=== PATIENT | female | born 1970 | race Caucasian/White ===

== ENCOUNTER 2023-10-14 00:55 | Emergency (ER) | payer BC, SELFPAY ==
[2023-10-14 00:56] VITALS: BMI 29.6
[2023-10-14 01:04] VITALS: BP 141/86
--- NOTE | 2023-10-14 01:21 | ED.GENMED ---
History of Present Illness
General
Chief Complaint: Medication Reaction
Source: patient
Time Seen by Provider: 10/14/23 01:13
Travel History
Have you had any contact with someone who has COVID-19?: No
Do you have any symptoms of coronavirus? Fever > 100 degrees, chills, cough, shortness of breath, sore throat, loss of taste or smell, muscle aches, or headache?: No
History of Present Illness
History of Present Illness:
This patient is a 53-year-old female who states she was feeling her usual self all day today. She typically takes to delta 8 Gummies as a way to feel relaxed and able to go to sleep. Tonight she took the same usual dose of delta 8 Gummies, and
shortly after, about 2 hours ago, started to feel extremely anxious associated with generalized dizziness, shaking and heart racing. She denies cp/sob/abd pain/n/v/back pain/n/t/focal weakness or other comlnts.
Past History
Past History
ED Past Medical History: Psychiatric
ED Past Surgical History: Orthopedic
Social History
Tobacco: Non-smoker
Alcohol: None
Drug: None
Personal:
Phy Exam
Physical Exam
Physical Exam:
GENERAL: Alert , in no apparent distress
EYE: pupils equal and reactive (L sl sluggish, pt has hx of congenital vision loss)
NECK: Supple, no significant adenopathy.
ENT: o/p clr, mmm.
CARDIAC: Regular rate and rhythm .
LUNGS: Clear breath sounds bilaterally, no acute respiratory distress, no wheezes/rales/rhonchi
ABDOMEN: Soft, without focal tenderness, no r/g, no cvat
NEUROLOGICAL: Alert and oriented, no focal neuro deficits
SKIN: Warm and dry, skin intact.
MUSCULOSKELETAL: No edema, well perfused.
PSYCH: extremely anxious
Course
Orders/Labs/Results
Orders:
Orders
10/14/23 01:20
Lorazepam [Ativan] 1 mg IV NOW STA
10/14/23 01:25
0.9% Sodium Chloride 1000 ml [Nss] 1,000 ml IV BOLUS
10/14/23 01:27
CBC/With Diff [Complete Blood Count/With Diff] Urgent
CMP [Comprehensive Metabolic Panel] Urgent
Abnormal Lab Results
10/14/23
01:27
Glucose 222 H mg/dl
(70-99)
AST 41 H U/L
(14-36)
10/14/23 01:27
10/14/23 01:27
Vital Signs
Initial and Last Documented VS:
Initial Vital Signs
Pulse Resp Pulse Ox
116 20 100
10/14/23 00:56 10/14/23 00:56 10/14/23 00:56
Last Documented Vital Signs
Pulse Resp BP Pulse Ox
86 14 92/59 92
10/14/23 04:45 10/14/23 04:45 10/14/23 04:00 10/14/23 04:45
*Critical Care Note
Total Time (30-74mins, 75-104mins- exclusive of procedures): Not Applicable
Update Note
Update Note:
Patient presents to the Emergency Department with anxiety, heart racing, dizzy
Number and Complexity of Problems Addressed at the Encounter
� Chronic conditions affecting care:
� Acute Exacerbation and/or Progression of Chronic Illness:
� Differential Diagnosis includes:But not limited to anxiety, electrolyte disorder, medication reaction, etc.
Amount and/or Complexity of Data to be Reviewed and Analyzed
� I performed an independent evaluation of and my interpretation is:
EKG:
CT:
Xrays:
Laboratory Studies: Generally unremarkable
Other:
� Review of other/old records reveals:
� Clinical information was obtained by an independent historian:
� Prescriptions/Medications Considered but not given:
� Further testing considered but not performed:
Risk of Complications and/or Morbidity or Mortality of Patient Management
� Social determinants of health affecting care:
� Discussion with other providers (PCP, Hospitalists, Consultants, etc):
� Escalation of care including admission/observation vs risk of discharge considered: now at bedside, history obtained from him as well. 4:36 AM patient resting comfortably, asymptomatic, feels much better. Suspect
either medication reaction or anxiety. Discussed with her and her importance of follow-up and reasons return to the ER, avoidance of delta 8, etc. Patient is very comfortable with discharge.
ED Attending Note
-
Portions of this chart may have been created with voice recognition software.� Occasional wrong word or��sound alike� substitutions may have occurred due to the inherent limitations of voice recognition software.
Discharge Plan
Departure
Patient Disposition: Home (Routine Discharge)
Date of Disposition: 10/14/23
Time of Disposition: 04:34
Patient with high blood pressure during this ER visit?: Yes
Condition: Good
Discharge Problem:
Dizziness
Instructions: Dizziness, BLOOD PRESSURE
Referrals:
Steven Mera MD [Family Provider] - Tomorrow
Activity Restrictions/Additional Instructions:
IF YOU DEVELOP CHEST PAIN, TROUBLE BREATHING, FEVER, CHILLS, VOMITING, ABDOMINAL PAIN, DIZZINESS, OR OTHER WORRISOME SIGNS, GO TO THE ER IMMEDIATELY!
Interventions
Interventions:
*Risk Screen - Suicide Last Done: 10/14/23 00:56
*General Assessment Last Done: 10/14/23 00:56
*Neglect/Abuse Screening Last Done: 10/14/23 00:56
ED- Fall Risk Assessment Last Done: 10/14/23 05:10
*ED COVID-19 Vaccine History Last Done: 10/14/23 00:56
*Nursing Disposition Last Done: 10/14/23 05:10
ED-Skin Assessment Last Done: 10/14/23 01:17
ED- Pulmonary Assessment Last Done: 10/14/23 01:17
ED-EENT Assessment Last Done: 10/14/23 01:17
Discharge Date and Time
Discharge Date/Time: 10/14/23 05:10
[2023-10-14] MEDS: ATIVAN 1 MG IV (01:27)
[2023-10-14] MEDS: NSS 1000 IV (01:27)
[2023-10-14 01:35] LABS: % Basophils 0.7 % (0-2); % Eosinophils 0.7 % (0-6); % Immature Granulocytes 0.2 % (0-0.5); % Lymphocytes 39.3 % (20.5-51.1); % Monocytes 6.2 % (1.7-9.3); % Neutrophils 52.9 % (42.2-75.2); Absolute Lymphocytes 2.2 10^3/uL (1.2-3.4); Absolute Monocytes 0.3 10^3/uL (0.1-0.6); Absolute Neutrophils 2.9 10^3/uL (1.4-6.5); Hematocrit 40.2 % (37.0-47.0); Hemoglobin 13.9 g/dL (12.0-16.0); Mean Corp Hgb Conc. 34.6 g/dL (33.0-37.0); Mean Corpuscular Hgb 29.4 pg (27.0-31.0); Mean Corpuscular Volume 85.2 fL (81.0-99.0); Mean Platelet Volume 10.2 fL (7.4-10.4); Nucleated Red Blood Cells % 0 %; Platelet Count 159 10^3/uL (130-400); Red Blood Cell Count 4.72 10^6/uL (4.20-5.40); Red Cell Dist. Width 13.3 % (11.5-14.5); White Blood Cell Count 5.5 10^3/uL (4.8-10.8)
[2023-10-14 01:50] LABS: ALT (SGPT) 23 U/L (0-35); AST (SGOT) 41 U/L (14-36); Albumin 4.4 g/dl (3.5-5.0); Alkaline Phosphatase 103 U/L (38-126); Blood Urea Nitrogen 17 mg/dl (7-17); Calcium 9.6 mg/dl (8.4-10.2); Carbon Dioxide 29 mmol/L (22-30); Chloride 100 mmol/L (98-107); Estimated Creatinine Clearance 100 ml/min; Glucose 222 mg/dl (70-99); Potassium 3.7 mmol/L (3.5-5.1); Sodium 140 mmol/L (135-145); Total Bilirubin 0.3 mg/dl (0.2-1.3); Total Protein 6.8 g/dl (6.3-8.2); eGFR > 60.00
[2023-10-14 03:00] VITALS: BP 107/63
[2023-10-14 04:00] VITALS: BP 92/59
== END 2023-10-14 05:10 | disposition home or self-care (01) ==
LOC: EMR 00:55
PROVIDERS: EMERGENCY PHYSICIAN Emergency Medicine; FAMILY PHYSICIAN Internal Medicine
DX: R42 Dizziness and giddiness (principal)
CPT/HCPCS: 99283; 96374; 96361; 80053; 85025

== ENCOUNTER 2025-01-25 20:49 | Emergency (ER) | payer BC, SELFPAY ==
[2025-01-25 20:51] VITALS: BP 170/111
== END 2025-01-25 22:33 | disposition left against medical advice (07) ==
LOC: EMR 20:49
PROVIDERS: EMERGENCY PHYSICIAN Emergency Medicine
DX: R51.9 Headache, unspecified (principal); Z53.21 Procedure and treatment not carried out due to patient leaving prior to being seen by health care provider
CPT/HCPCS: 70450

== ENCOUNTER 2025-04-30 22:47 | Emergency (ER) | payer BC, SELFPAY ==
[2025-04-30 22:59] VITALS: BP 156/87
[2025-04-30 23:48] LABS: Hematocrit 43.7 % (37.0-47.0); Hemoglobin 14.7 g/dL (12.0-16.0); Mean Corp Hgb Conc. 33.6 g/dL (33.0-37.0); Mean Corpuscular Volume 84.7 fL (81.0-99.0); Nucleated Red Blood Cells % 0 %; Platelet Count 179 10^3/uL (130-400); Red Cell Dist. Width 13.1 % (11.5-14.5)
[2025-05-01 00:07] LABS: ALT (SGPT) 25 U/L (0-35); AST (SGOT) 41 U/L (14-36); Albumin 4.8 g/dl (3.5-5.0); Alkaline Phosphatase 92 U/L (38-126); Blood Urea Nitrogen 19 mg/dl (7-17); Calcium 10.1 mg/dl (8.4-10.2); Carbon Dioxide 29 mmol/L (22-30); Chloride 104 mmol/L (98-107); Glucose 138 mg/dl (70-99); Potassium 4.2 mmol/L (3.5-5.1); Sodium 141 mmol/L (135-145); Total Protein 7.5 g/dl (6.3-8.2); eGFR > 60.00
[2025-05-01 00:18] LABS: Troponin I < 0.012 ng/ml
[2025-05-01 00:42] VITALS: BP 134/93
--- NOTE | 2025-05-01 01:37 | ED.GENMED ---
History of Present Illness
General
Chief Complaint: Cardiac Symptoms
Source: patient
Time Seen by Provider: 05/01/25 01:19
History of Present Illness
History of Present Illness:
Note:
CHIEF COMPLAINT(S)
Palpitations and elevated heart rate.
HISTORY OF PRESENT ILLNESS
The patient is a 55-year-old female with a history of panic attacks, who presented with symptoms of a racing heart. The onset occurred while preparing for bed after taking Ambien, a sedative hypnotic for sleep. The patient described her heart rate
escalating to 150 beats per minute, which she noted was significantly higher than her typical resting heart rate. She did not experience shortness of breath outside of a brief hyperventilation episode due to anxiety over her condition. She reported
occasional leg discomfort but attributed it to a pre-existing leg issue, not noting any recent changes. The patients watch, which has EKG capabilities, indicated a high rate but sinus rhythm, corroborated by the medical facility upon her arrival.
Additionally, she mentioned taking two tablets of Benadryl in the evening for nasal congestion, having also taken some during the day for allergies. She denies caffeine use. The patient is undergoing significant stress due to family circumstances;
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
PAST MEDICAL AND SURGICAL HISTORY
History of panic attacks.
SOCIAL DETERMINANTS AFFECTING HEALTH
The patient is undergoing considerable stress due to caregiving responsibilities for her , who was recently hospitalized for cancer, and their four children.
REVIEW OF SYSTEMS
- Cardiovascular: Palpitations, heart rate increased to 150 beats per minute.
- Respiratory: No persistent shortness of breath.
- Musculoskeletal: Occasional leg discomfort, attributed to a pre-existing condition, with no recent changes.
- Neurological: Brief episode of hyperventilation related to anxiety.
PHYSICAL EXAM
General: Alert, no acute distress.
Skin: Warm, dry.
Head: Normocephalic, atraumatic.
Neck: Supple, trachea midline.
Eye Ears, nose, mouth and throat: Oral mucosa moist.
Cardiovascular: Normal peripheral perfusion, No edema.
Respiratory: Respirations are non-labored.
Gastrointestinal: Abdomen nondistended.
Back: Normal range of motion, Normal alignment.
Musculoskeletal: Normal range of motion, normal strength.
Neurological: Alert and oriented to person, place, time, and situation, No focal neurological deficit observed.
Psychiatric: Cooperative, appropriate mood & affect.
PLAN
1. Conduct a blood test to evaluate the probability of a blood clot.
2. Administer a liter of intravenous fluids for possible dehydration.
3. Avoid concomitant use of Benadryl with Ambien to prevent adverse interactions.
4. Monitor for stress and anxiety related to her caregiving responsibilities.
DIFFERENTIAL DIAGNOSIS
The Differential Diagnosis includes, in no particular order and is not limited to:
1. Panic attack
2. Tachycardia secondary to medication interaction
3. Dehydration
4. Anxiety disorder
5. Heart arrhythmia
6. Blood clot (pulmonary embolism)
7. Medication-induced tachycardia
8. Hyperthyroidism
9. Pericarditis
10. Myocardial infarction
Disposition:
SUMMARY OF ENCOUNTER
The patient, a 55-year-old female with a history of panic attacks, presented to the emergency department with a complaint of a racing heart. During her evaluation, it was noted that she had a brief episode of a palpitating heart rate. Cardiac
monitoring (likely telemetry or EKG, specific modality uncertain) showed sinus rhythm with no acute abnormalities. The patient was asymptomatic at the time of evaluation.
DISPOSITION
The patient was discharged and instructed to follow up with her family doctor.
ASSESSMENT
The episode of a racing heart is most likely secondary to a panic attack, given her medical history, and possibly exacerbated by medication interactions or stress.
PLAN
The patient is to follow up with her family doctor for further evaluation and management of her symptoms, including potential medication review or adjustment.
MEDICAL DECISION MAKING
- Number and Complexity of Problems Addressed: Chronic conditions affecting care include a history of panic attacks. The differential diagnosis included panic attack, tachycardia secondary to medication interaction, dehydration, anxiety disorder,
heart arrhythmia, blood clot (pulmonary embolism), medication-induced tachycardia, hyperthyroidism, pericarditis, and myocardial infarction.
Category 2
- Data: The initial EKG or heart rhythm monitoring showed sinus rhythm and was interpreted to be without acute abnormalities, aligning with her current asymptomatic state.
-Risk: Prescription medication risk was considered, given her stress levels and current medication interactions, as well as monitoring for potential panic attack recurrence.
DIAGNOSIS
1. Panic disorder with palpitations (ICD-10 Code: F41.0)
Past History
Past History
ED Past Medical History: Psychiatric
ED Past Surgical History: Orthopedic
Social History
Tobacco: Non-smoker
Alcohol: None
Drug: None
Personal:
Course
Orders/Labs/Results
Orders:
Orders
04/30/25 22:50
EKG [Electrocardiogram (*1)] Urgent
Reason for Study: Palpitations
EKG- Treatment ONCE
04/30/25 22:51
Electrocardiogram (*1) Urgent
Reason for Study: Chest Pain
EKG- Treatment ONCE
04/30/25 23:05
Complete Blood Count/With Diff Urgent
Troponin I Urgent
04/30/25 23:06
Comprehensive Metabolic Panel Urgent
05/01/25 01:45
Electrocardiogram (*1) Urgent
Reason for Study: Chest Pain
EKG- Treatment ONCE
0.9% Sodium Chloride 500 ml [Nss] 500 ml IV BOLUS
05/01/25 02:15
D-Dimer Urgent
Troponin I Urgent
Abnormal Lab Results
04/30/25
23:06
BUN 19 H mg/dl
(7-17)
Glucose 138 H mg/dl
(70-99)
AST 41 H U/L
(14-36)
04/30/25 23:05
04/30/25 23:06
Vital Signs
Initial and Last Documented VS:
Initial Vital Signs
Temp Pulse Resp BP Pulse Ox
97.6 F 106 22 156/87 100
04/30/25 22:59 04/30/25 22:59 04/30/25 22:59 04/30/25 22:59 04/30/25 22:59
Last Documented Vital Signs
Temp Pulse Resp BP Pulse Ox
97.6 F 101 11 134/93 99
04/30/25 22:59 05/01/25 00:45 05/01/25 00:45 05/01/25 00:42 05/01/25 00:45
*Pulse Oximetry
SaO2: 99
Oxygen Mode of Delivery: Room air
ED Attending Note
-
Portions of this chart may have been created with voice recognition software.� Occasional wrong word or��sound alike� substitutions may have occurred due to the inherent limitations of voice recognition software.
Discharge Plan
Departure
Patient Disposition: Home (Routine Discharge)
Date of Disposition: 05/01/25
Time of Disposition: 03:18
Patient with high blood pressure during this ER visit?: Yes
Discharge Problem:
Tachycardia, Anxiety
Instructions: Tachycardia, Anxiety in adults - ED (DC)
Referrals:
Steven Mera MD [Family Provider]
Activity Restrictions/Additional Instructions:
Thank You for choosing [facility].
It was a pleasure meeting you and taking part in your care. We hope for your continued healing and wellness.
Please read discharge instructions in their entirety. However, they are for general education and may not describe your exact diagnosis at discharge. Information on your ER visit and medical conditions were discussed with you along with appropriate
follow up information...
If indicated, please take your medications as instructed and indicated on discharge paperwork.
Please schedule a follow up appointment as directed. Call to schedule an appointment
Please return to the emergency department with ANY change in, persisting, or worsening of symptoms. If any of your symptoms do not improve, or persist, or become more severe within 6-12 hours, please return to the emergency department for further
care.
Please return to the emergency department if you develop a headache, neck pain/stiffness, fever greater than 100.4F, chest pain, shortness of breath, persistent nausea, vomiting, slurred speech, difficulty walking, numbness/tingling, weakness, signs
of infection or any other symptoms that are worrisome to you.
If you have any questions or concerns please do not hesitate to call the Hospital at .
Interventions
Interventions:
*Risk Screen - Suicide Last Done: 04/30/25 22:59
*Neglect/Abuse Screening Last Done: 04/30/25 22:59
*ED- Fall Risk Assessment Last Done: 04/30/25 22:59
*ED COVID-19 Vaccine History Last Done: 04/30/25 22:59
Discharge Date and Time
Print Language: BRUNEIAN
[2025-05-01] MEDS: NSS 500 IV (02:14)
[2025-05-01 02:35] LABS: D-Dimer 0.30 ug/mlFEU (0.00-0.50)
[2025-05-01 03:04] LABS: Troponin I < 0.012 ng/ml
== END 2025-05-01 04:07 | disposition home or self-care (01) ==
LOC: EMR 22:47
PROVIDERS: EMERGENCY PHYSICIAN Student in an Organized Health Care Education/Training Program; FAMILY PHYSICIAN Internal Medicine
DX: F41.9 Anxiety disorder, unspecified (principal); R00.0 Tachycardia, unspecified
CPT/HCPCS: 96360; 99284; 80053; 84484; 85025; 85379; 93005